=== PATIENT | female | born 1975 | race Caucasian/White ===

== ENCOUNTER 2023-10-05 15:32 | Observation (INO) | payer OTHER, SELFPAY ==
[2023-10-05 11:05] VITALS: BP 140/100
--- NOTE | 2023-10-05 11:30 | ED.GENMED ---
History of Present Illness
General
Chief Complaint: Abdominal Symptoms
Source: patient
Exam Limitations: none
Time Seen by Provider: 10/05/23 11:11
Nursing documentation reviewed up to this point in time: agreed with
Travel History
Have you had any contact with someone who has COVID-19?: No
Do you have any symptoms of coronavirus? Fever > 100 degrees, chills, cough, shortness of breath, sore throat, loss of taste or smell, muscle aches, or headache?: No
History of Present Illness
History of Present Illness:
48-year-old female with no significant past medical history states she had an upper endoscopy 4 days ago, 2 days ago developed lower abdominal cramping 'like contractions' that last for seconds but comes frequently. After the cramping she has
liquid bloody stools. She had 3 liquid bloody stools yesterday and 1 today about 2 hours ago. They do seem to be lessening in amount. She still has the abdominal cramping. No recent antibiotic use.
Past History
Past History
ED Past Medical History: None
ED Past Surgical History:
Social History
Tobacco: Non-smoker
Alcohol: None
Personal:
Living: with family
Employment: Employed
Review of Systems
Review of Systems
Allergies reviewed?: Yes
All Other Systems: ROS reviewed and negative except as documented in HPI and ROS
Constitutional: Denies fever or fatigue
Respiratory: Denies trouble breathing
Cardiac: Denies chest pain or syncope
ABD/GI: Reports abdominal pain and bloody stools; Denies nausea or vomiting
: Denies dysuria, frequency or difficulty voiding
Musculoskeletal: Reports no symptoms
Skin: Reports no symptoms
Neurological: Reports no symptoms
Phy Exam
Physical Exam
Physical Exam:
GENERAL: No acute distress. A&Ox3.
CONSTITUTIONAL: Afebrile.
EYES: Clear, conjunctivae normal
ENMT: moist mucus membranes, Pharynx nl
RESPIRATORY: Regular respirations, nonlabored, lungs clear.
CARDIOVASCULAR: Regular rate and rhythm, no murmurs, no rubs.
GI: Soft, mildy tender right lower abdomen, nondistended, normal BS
MUSCULOSKELETAL: Moves with ease. Well perfused.
SKIN: Warm, dry, pink
PSYCH: Normal mood and affect. Well kept, interactive and appropriate
NEUROLOGIC: Awake, alert and oriented. No focal neurological deficits
Course
Orders/Labs/Results
Orders:
Orders
10/05/23 11:29
CT Abd/Pel (IV only)-DH only Urgent
Comment:
Reason For Exam: lower GI bleed
IV Insert/Care/Rem.- Treatment PRN
10/05/23 12:05
Type+Screen Urgent
Complete Blood Count/With Diff Urgent
Comprehensive Metabolic Panel Urgent
PTT Urgent
Prothrombin Time Urgent
10/05/23 14:28
Add On- LAB Urgent
Tests Added?: CRP, sed rate
10/05/23 14:31
C DIFF [C difficile Antigen & Toxins] Urgent
NAHUN Source: Feces/Stool
Specimen Description:
Stool Culture Urgent
NAHUN Source: Feces/Stool
Specimen Description:
10/05/23 14:37
GASTROINTESTINAL CONSULT Urgent
Consulting Provider: Kylie Pro
Was physician already notified: Yes
Reason for consult: rectal bleeding, severe descending colon colitis
10/05/23 15:08
Admit/Transfer Patient As Directed
Co-Sign Provider:
Level of Care: Observation services
Assign to:: Medical/Surgical
Physician / Group: hospitalist-Joslyn
Diagnosis: BRBPR
10/05/23 15:09
Code Status As Directed
Resuscitation Status: Full Code
10/05/23 16:00
Piperacillin/Tazo 3.375 Gram [Zosyn] 3.375 gram in 50 ml IV Q6H
Abnormal Lab Results
10/05/23
12:05
MPV 11.4 H fL
(7.4-10.4)
Absolute Neuts (auto) 7.1 H 10^3/uL
(1.4-6.5)
Lymphocytes % 18.7 L %
(20.5-51.1)
Glucose 104 H mg/dl
(70-99)
10/05/23 12:05
10/05/23 12:05
Vital Signs
Initial and Last Documented VS:
Initial Vital Signs
Temp Pulse Resp BP Pulse Ox
98.7 F 71 16 140/100 100
10/05/23 11:05 10/05/23 11:05 10/05/23 11:05 10/05/23 11:05 10/05/23 11:05
Last Documented Vital Signs
Temp Pulse Resp BP Pulse Ox
98.7 F 61 16 134/87 99
10/05/23 11:05 10/05/23 13:00 10/05/23 13:00 10/05/23 13:00 10/05/23 13:00
Lobster Man consulted with Physician
Lobster Man consulted with physician?: Yes
Name of Physician Consulted: Sandy
MDM/Problems Addressed
Differential Diagnosis Includes:
bleeding diverticulum, colitis, diverticulitis, fissure
MDM/Problems Addressed:
48-year-old female with no significant past medical history states she had an upper endoscopy 4 days ago, 2 days ago developed lower abdominal cramping 'like contractions' that last for seconds but comes frequently. After the cramping she has
liquid bloody stools. She had 3 liquid bloody stools yesterday and 1 today about 2 hours ago. They do seem to be lessening in amount. She still has the abdominal cramping. No recent antibiotic use.
Vital signs stable, afebrile, NAD
No recent travel or known exposures.
10/05/2023 1231 PM
Passed approx 75 mL liquid bloody stool.
CBC normal
CMP normal
10/05/[address] abdomen pelvis with IV only contrast, radiology report read: IMPRESSION:
1. Severe colitis of the descending colon, likely of infectious/inflammatory etiology. No perforation or abscess.
Pt continues with liquid bloody stool.
Plan: admit: severe colitis with liquid bloody stools, IV Zosyn started, GI consult in. Pt remains stable. Stool cultures pending.
Case discussed with Dr. Delgado who agrees with plan
*Critical Care Note
Total Time (30-74mins, 75-104mins- exclusive of procedures): Not Applicable
ED Attending Note
-
Portions of this chart may have been created with voice recognition software.� Occasional wrong word or��sound alike� substitutions may have occurred due to the inherent limitations of voice recognition software.
Discharge Plan
Departure
Patient Disposition: Admit
Date of Disposition: 10/05/23
Time of Disposition: 14:35
Presentation/result/management discussed w/ accepting MD/DO: Hospitalist
Condition: Fair
Discharge Problem:
Acute hemorrhagic colitis
Interventions
Interventions:
*Risk Screen - Suicide Last Done: 10/05/23 12:03
*General Assessment Last Done: 10/05/23 11:05
*Neglect/Abuse Screening Last Done: 10/05/23 12:03
*ED COVID-19 Vaccine History Last Done: 10/05/23 11:05
[2023-10-05 12:02] VITALS: BMI 26.0
[2023-10-05 12:26] VITALS: BP 154/85
[2023-10-05 12:35] LABS: % Basophils 0.3 % (0-2); % Eosinophils 0.2 % (0-6); % Immature Granulocytes 0.2 % (0-0.5); % Lymphocytes 18.7 % (20.5-51.1); % Monocytes 5.4 % (1.7-9.3); % Neutrophils 75.2 % (42.2-75.2); Absolute Lymphocytes 1.8 10^3/uL (1.2-3.4); Absolute Monocytes 0.5 10^3/uL (0.1-0.6); Absolute Neutrophils 7.1 10^3/uL (1.4-6.5); Hematocrit 39.4 % (37.0-47.0); Hemoglobin 13.5 g/dL (12.0-16.0); Mean Corp Hgb Conc. 34.3 g/dL (33.0-37.0); Mean Corpuscular Volume 84.7 fL (81.0-99.0); Mean Platelet Volume 11.4 fL (7.4-10.4); Nucleated Red Blood Cells % 0 %; Platelet Count 208 10^3/uL (130-400); Red Blood Cell Count 4.65 10^6/uL (4.20-5.40); Red Cell Dist. Width 12.2 % (11.5-14.5); White Blood Cell Count 9.4 10^3/uL (4.8-10.8)
[2023-10-05 12:44] LABS: INR 1.05; PT 13.5 Sec (11.4-14.6)
[2023-10-05 12:45] LABS: APTT 25.5 Sec (23.4-35.0)
[2023-10-05 13:00] VITALS: BP 134/87
[2023-10-05 13:08] LABS: ALT (SGPT) 20 U/L (0-35); AST (SGOT) 22 U/L (14-36); Albumin 4.1 g/dl (3.5-5.0); Alkaline Phosphatase 103 U/L (38-126); Blood Urea Nitrogen 15 mg/dl (7-17); Calcium 10.1 mg/dl (8.4-10.2); Carbon Dioxide 29 mmol/L (22-30); Chloride 101 mmol/L (98-107); Estimated Creatinine Clearance 104 ml/min; Glucose 104 mg/dl (70-99); Potassium 3.9 mmol/L (3.5-5.1); Sodium 137 mmol/L (135-145); Total Bilirubin 0.9 mg/dl (0.2-1.3); Total Protein 6.7 g/dl (6.3-8.2); eGFR > 60.00
[2023-10-05 14:28] VITALS: BP 120/85
--- NOTE | 2023-10-05 15:11 | HPS.HSE ---
Family Physician
-
Family Physician: Blayne Rashid
Chief Complaint
-
Bright red blood per rectum
History of Present Illness
Patient is a 48-year-old female who had an EGD this past Friday prior to admission for the sensation of food getting 'stuck'. She had this done in the [place] area and was told she had no issues. 2 days ago she started developing abdominal
pain which is crampy in nature and described as 'contraction-like' in association with bright red blood per rectum. She has never had any previous issues like this. She denies fevers, chills, nausea, vomiting. Hemoglobin is stable at 13.5. Vital
signs are stable. Patient is being brought in as observation.
Medical History
Past Medical History
Past Medical History: Reports Other
Additional Past Medical History:
Hemorrhoids
Past Surgical History: Reports Other
Additional Past Surgical History:
History of
Fibroid removal
Social History
Tobacco: Former Smoker (Quit 25 years ago, used to smoke half pack per day)
Alcohol: Occasional
Drug: Other (No significant nonsteroidal use)
Family History
Family History: Other (Negative for)
Allergies / Home Medications
Allergies reflects when Allergies were last updated in [facility].
Home Medications with original date entered in [facility]
Allergy/Medication List:
Allergies
Allergy/AdvReac Type Severity Reaction Status Date / Time
No Known Allergies Allergy Verified 10/05/23 11:09
Home Medications
No Meds [No Current Medications] 10/05/23
Review of Systems
-
History Source: Patient
A 12 point ROS was completed and negative except as noted: Yes
Constitutional: Denies Fever or Chills
EENT: Reports No Symptoms
Respiratory: Reports No Symptoms
Cardiac: Reports Other (Burning on the right side of her chest that is associated with the bleeding but does not feel like reflux according to the patient)
Abdomen/GI: Reports Abdominal Pain (Crampy) and Bloody Stools; Denies Nausea, Vomiting, Diarrhea or Constipated
: Reports No Symptoms
Musculoskeletal: Reports No Symptoms
Skin: Reports No Symptoms
Neurological: Reports No Symptoms
Endocrine: Reports No Symptoms
Hematologic/Lymphatic: Reports No Symptoms
Physical Exam
Vital Signs
Vital Signs
Temp Pulse Resp BP Pulse Ox
98.7 F 61 16 134/87 99
10/05/23 11:05 10/05/23 13:00 10/05/23 13:00 10/05/23 13:00 10/05/23 13:00
Physical Exam
General: Well Developed, Well Nourished and No Apparent Distress
HEENT: NormoCephalic and Atraumatic; No Oxygen
Respiratory: Clear; No Wheezes, Rales, Rhonchi or Crackles
Cardiac: S1/S2 and Regular Rhythm; No Tachycardia or Murmur
GI: Soft, Non Tender, Non Distended and Normal Bowel Sounds
Musculoskeletal: No Clubbing, No Cyanosis and No Edema
Skin: Warm
Neuro: Awake and Alert
Psych: Calm
Laboratory Results
-
10/05/23 12:05
10/05/23 12:05
Laboratory Results
PT 13.5 Sec (11.4-14.6) 10/05/23 12:05
INR 1.05 10/05/23 12:05
APTT 25.5 Sec (23.4-35.0) 10/05/23 12:05
Total Bilirubin 0.9 mg/dl (0.2-1.3) 10/05/23 12:05
AST 22 U/L (14-36) 10/05/23 12:05
ALT 20 U/L (0-35) 10/05/23 12:05
Alkaline Phosphatase 103 U/L (38-126) 10/05/23 12:05
Impression/Plan
-
Patient is a 48-year-old female
Bright red blood per rectum --CAT scan done in the emergency department shows severe colitis of the descending colon likely infectious/inflammatory--patient has no white blood cell count elevation, no fevers--denies being ill or sick prior to
this--OBS --consult GI--will cover with antibiotics for now--clear liquids no reds--check stool studies--patient also states she has had 2 colonoscopies previous with the [facility] unclear what the timeline was
CODE STATUS--full code
DVT prophylaxis
[2023-10-05] MEDS: ZOSYN 50 IV ×2 (15:39→23:03)
[2023-10-05 16:24] VITALS: BMI 25.2
[2023-10-05 16:25] VITALS: BP 131/95
[2023-10-05] MEDS: PROTONIX IV 40 MG IV (16:52)
[2023-10-05] MEDS: NSS (PRESERVATIVE FREE) 10 ML IV (16:52)
--- NOTE | 2023-10-05 18:00 | PTCARENOTE ---
admitted from ED for colitis. AAOx3, VSS. having frequent loose bloody stools, specimen sent for culture. placed on contact precautions for Cdiff pending results. patient c/o of intermittent abdominal pain and cramping, PRN Morphine IV ordered. on
clear liquid diet, no nausea, vomiting. IV protonix administered. admission assessment as documented.
[2023-10-05 23:10] VITALS: BP 133/89
[2023-10-06] MEDS: ZOSYN 50 IV ×2 (05:05→11:25)
[2023-10-06] MEDS: TYLENOL 650 MG PO (05:33)
[2023-10-06 06:36] LABS: Hematocrit 39.3 % (37.0-47.0); Hemoglobin 13.5 g/dL (12.0-16.0); Mean Corp Hgb Conc. 34.4 g/dL (33.0-37.0); Mean Corpuscular Hgb 28.4 pg (27.0-31.0); Mean Corpuscular Volume 82.6 fL (81.0-99.0); Mean Platelet Volume 11.3 fL (7.4-10.4); Platelet Count 221 10^3/uL (130-400); Red Blood Cell Count 4.76 10^6/uL (4.20-5.40); Red Cell Dist. Width 12.1 % (11.5-14.5); White Blood Cell Count 10.7 10^3/uL (4.8-10.8)
[2023-10-06 06:54] LABS: Blood Urea Nitrogen 14 mg/dl (7-17); Carbon Dioxide 26 mmol/L (22-30); Chloride 102 mmol/L (98-107); Estimated Creatinine Clearance 91 ml/min; Glucose 96 mg/dl (70-99); Magnesium 1.9 mg/dl (1.6-2.3); Potassium 4.1 mmol/L (3.5-5.1); Sodium 136 mmol/L (135-145); eGFR > 60.00
[2023-10-06 07:00] VITALS: BP 128/81
[2023-10-06] MEDS: PROTONIX IV 40 MG IV (07:59)
[2023-10-06] MEDS: NSS (PRESERVATIVE FREE) 10 ML IV (08:00)
--- NOTE | 2023-10-06 08:30 | PTOTSP ---
Speech Language Pathology
Pt seen for clinical bedside swallow evaluation. Pt reported globus sensation, specifically of nuts, localized to level of sternal notch for approximately 2 months. She stated this resolved 2 weeks ago, prior to EGD completion. EGD with no
findings per her report. She reported she has had nuts in the last 2 weeks with no difficulties.
This date, P.O. trials of regular solids (1 small bite for evaluation purposes) and thin liquids provided. Adequate mastication, bolus formation, and A-P transit noted. No overt signs of aspiration.
Recommend:
(1) Regular solids/thin liquids once cleared by GI
(2) General aspiration precautions
(3) Meds as tolerated
(4) EMS DIRECTOR to sign off. Please reconsult as indicated.
--- NOTE | 2023-10-06 08:32 | CON.GI ---
Addendum entered and electronically signed by Kylie Pro MD 10/06/23 11:55:
I saw and examined the patient.
The FEDERAL JAVA DEVELOPER's note was reviewed and I agree with the note.
Comment: This is a 48-year-old female who presented to the emergency room last night with symptoms of diarrhea with rectal bleeding. She did have lower abdominal discomfort associated with it. She says that she had a recent endoscopy with her GI
in [place] (she could not remember the name) for dysphagia symptoms and she says that it was unremarkable she is waiting on biopsy results from her esophagus. She currently has no symptoms of reflux. she had eggs and sausage yesterday for
breakfast at a restaurant. She is feeling much improved today she did receive antibiotics in the emergency room with Zosyn and CT showed severe colitis of the descending colon, her WBC count is normal, and hemoglobin is normal, stool was negative
for C. difficile, cultures are pending.
Assessment and plan acute onset of abdominal pain with bloody diarrhea and CT with left-sided colitis consistent with infectious colitis. Given that she is nontoxic-appearing and unremarkable labs would discontinue antibiotics. symptoms markedly
improved within 24 hours she did receive 2 doses of Zosyn since admission. Will advance diet to low residue diet. She did have a recent colonoscopy in 2022 and had colon polyps doubt inflammatory bowel disease. if she tolerates diet and no
further bleeding she is okay to DC home for outpatient follow-up with her GI
Original Note:
Consultation
-
Date/Time Consultation Requested: 10/05/23 @ 14:37
Date/Time Consultation Performed: 10/06/23 @ 09:00
Requesting Provider: Dr. Jorgensen
Performing Provider: SOFÍA Pena; Dr. Pro
Reason for Consultation: rectal bleeding, severe descending colon colitis
Medical History
Chief Complaint / HPI
Chief Complaint: BRBPR
History of Present Illness:
The pt is a 48 yo female with a PMH significant for hemorrhoids, dysphagia, who presented to the ER with complaints of bright red blood per rectum. We are being asked to evaluate for colitis. The pt reports developing crampy abdominal discomfort to
the left lower abdomen over the weekend with associated bright red blood per rectum. She notes that she had 4 episodes of bleeding prior to admission. She denies similar episodes in the past. Leading up to this she had been experiencing some
problems with constipation over the last 2 months, which is uncommon for her. She denies any significant diarrhea prior to this episode. She denies any nausea or vomiting, but has had recent workup for dysphagia undergoing an endoscopy in [place]
which was reportedly normal. She denies any fevers, chills, chest pain, shortness of breath, unintentional weight loss, loss of appetite, syncope, or dizziness. She denies any anemia or history of GI bleed. She otherwise denies any recent
hospitalizations, recent changes in medications, recent antibiotics, sick contacts, or recent travel. She does admit to prior history of colonoscopy in which she had polyps removed, sometime last year. She denies any use of blood thinners or
significant use of NSAIDs. No significant family history of colon cancer or other GI disorders. She denies any personal history of IBD or colitis. In the ER, CT of the abdomen pelvis was done with IV contrast showing severe colitis of the
descending colon without perforation or abscess. Labs essentially unrevealing. Stool studies sent negative for C. difficile, with stool culture pending. She was started on IV Zosyn, clear liquid diet, and admitted for further evaluation by GI.
She reports no further bleeding since last night.
Past Medical History
Past Medical History: Other (hemorrhoids, dysphagia (w/up unrevealing per pt))
Past Surgical History: and Gynecological (fibroid tumor removed)
Social History
Tobacco: Non-Smoker
Alcohol: None
Drug: None
Personal:
Living: With Family
Family History
Family History: Reviewed & Not Pertinent
Allergies / Home Medications
Allergy/AdvReac Type Severity Reaction Status Date / Time
No Known Allergies Allergy Verified 10/05/23 11:09
Medication Instructions Recorded
No Meds [No Current Medications] 10/05/23
Review of Systems
-
History Source: Patient
Constitutional: Reports No Symptoms
EENT: Reports No Symptoms
Respiratory: Reports No Symptoms
Cardiac: Reports No Symptoms
Abdomen/GI: Reports Abdominal Pain, Diarrhea and Bloody Stools
: Reports No Symptoms
Musculoskeletal: Reports No Symptoms
Skin: Reports No Symptoms
Neurological: Reports No Symptoms
Vital Signs
Temp Pulse Resp BP Pulse Ox
98.3 F 63 18 133/89 97
10/05/23 23:10 10/05/23 23:10 10/05/23 23:10 10/05/23 23:10 10/05/23 23:10
Physical Exam
Exam
General: Well Developed, Well Nourished and No Apparent Distress
HEENT: Normocephalic and Atraumatic
Respiratory: Clear
Cardiac: S1/S2 and Regular Rhythm
Breast: Deferred by me
GI: Soft, Non Distended, Normal Bowel Sounds (hyperactive) and Tender (LLQ)
Rectal: Deferred by Provider
Musculoskeletal: No Edema
Skin: Warm and Dry
Neuro: Awake, Alert and Oriented
Psych: Calm
Results
WBC 10.7 10^3/uL (4.8-10.8) 10/06/23 06:00
Hgb 13.5 g/dL (12.0-16.0) 10/06/23 06:00
Hct 39.3 % (37.0-47.0) 10/06/23 06:00
MCV 82.6 fL (81.0-99.0) 10/06/23 06:00
Plt Count 221 10^3/uL (130-400) 10/06/23 06:00
Absolute Neuts (auto) 7.1 10^3/uL (1.4-6.5) H 10/05/23 12:05
PT 13.5 Sec (11.4-14.6) 10/05/23 12:05
INR 1.05 10/05/23 12:05
APTT 25.5 Sec (23.4-35.0) 10/05/23 12:05
Sodium 136 mmol/L (135-145) 10/06/23 06:00
Potassium 4.1 mmol/L (3.5-5.1) 10/06/23 06:00
Chloride 102 mmol/L (98-107) 10/06/23 06:00
Carbon Dioxide 26 mmol/L (22-30) 10/06/23 06:00
BUN 14 mg/dl (7-17) 10/06/23 06:00
Creatinine 0.8 mg/dL (0.6-1.0) 10/06/23 06:00
Calcium 10.0 mg/dl (8.4-10.2) 10/06/23 06:00
Total Bilirubin 0.9 mg/dl (0.2-1.3) 10/05/23 12:05
AST 22 U/L (14-36) 10/05/23 12:05
ALT 20 U/L (0-35) 10/05/23 12:05
Alkaline Phosphatase 103 U/L (38-126) 10/05/23 12:05
Diagnostic Image Results:
10/05/23 CT A/P w/IV contrast only: 'Severe colitis of the descending colon, likely of infectious/inflammatory etiology. No perforation or abscess.'
Prior GI Procedures:
EGD: last month in [place] for dysphagia, normal per pt. (report not available to me)
Colonoscopy: last 2022 per pt with polyps (report not available to me)
Assessment / Plan
-
The pt is a 48 yo female with a PMH significant for hemorrhoids, dysphagia with recent EGD which was unrevealing (per pt), who presented to the ER with complaints of bright red blood per rectum. We are being asked to evaluate for colitis. She notes
acute onset of crampy abdominal pain over the weekend with associated rectal bleeding. No identifiable triggers. Cdiff negative, further stools pending. CT imaging showing severe descending colitis. No prior episodes of colitis in the past. No
recent abx or recent travel. She notes she has had 2 colonoscopies for routine screenings with polyps.
Problem list:
-abdominal pain 2/2 severe descending colitis seen on CT scan
-BRBPR
-dysphagia (EGD unrevealing last month per pt)
-hx colon polyps
Recommendations:
-Etiology of colitis likely infectious v inflammatory v less likely ischemic v other.
---Prior colonoscopies with polyps, last 2022 per pt with no hx IBD. Cdiff negative. CT as above.
-For now continue with conservative management.
-Stool studies pending, will follow. Cdiff negative (added giardia/crypto, norovirus, and stool WBC)
-Continue IV antibiotics for now with severity of colitis on CT and improvement in symptoms, will review with Dr. Pro
-Monitor stool output (no blood since 10/05 evening)
-CLD this am, if tolerating advance to low residue diet. Provided a handout on low residue diet.
-She would like to be discharged and I advised her we need to make sure she is tolerating her diet and has no further bleeding.
-I did also review with her she will need eventual colonoscopy 6-8 weeks post colitis episode for further evaluation which she can do with her GI in [place].
-Will follow
Data Reviewed
-
CT Scan: Report Reviewed by me
-
-
Thank you for consultation and allowing me to participate in the patient's care. Please call the senior medical transcriptionist GI physician during the after hours with any questions or concerns.
--- NOTE | 2023-10-06 12:39 | W.PN.HOSP.TC ---
Addendum entered and electronically signed by Waldo Polanco MD 10/06/23 12:48:
With uncomplicated colitis, nontoxic-appearing on unremarkable labs and rapid improvement in her colitis symptoms GI recommends to hold further antibiotics.
Original Note:
Today's Communication/Plan
-
dc
Assessment / Plan
Assessment / Plan
Patient is a 48-year-old female
Bright red blood per rectum --CAT scan done in the emergency department shows severe colitis of the descending colon likely infectious/inflammatory--patient has no white blood cell count elevation, no fevers--denies being ill or sick prior to this--
--patient also states she has had colonoscopies previous with the [facility] unclear what the timeline was
Her colitis is uncomplicated. Tolerating diet. No further rectal bleeding. Hemoglobin stable. Seen by GI. Diet being advanced.
He tolerates low residue diet we will discharge her home on oral Augmentin.
Patient advised to return to ER if fever, worsening abdominal pain, or further rectal bleeding. Otherwise plan is to see GI in 6 to 8 weeks time.
CODE STATUS--full code
DVT prophylaxis
Anticipated Discharge: Today
Subjective/Interval History
-
Date of Service: October 06, 2023
No nausea vomiting. Tolerating liquid diet ; diet been advanced to low residue diet by GI.
Abdominal pain much improved.
No further rectal bleeding not had any bowel movement.
Objective Data
-
Labs:
Laboratory Results
10/06/23
06:00
WBC 10.7
Hgb 13.5
Hct 39.3
Plt Count 221
Sodium 136
Potassium 4.1
Chloride 102
Carbon Dioxide 26
BUN 14
Creatinine 0.8
Glucose 96
Calcium 10.0
Vital Signs:
Vital Signs
Temp Pulse Resp BP Pulse Ox
98.2 F 63 16 128/81 100
10/06/23 07:00 10/06/23 07:00 10/06/23 07:00 10/06/23 07:00 10/06/23 07:00
I&O
10/05/23 10/06/23 10/07/23
06:59 06:59 06:59
Intake Total 530 / 530
Balance 530 / 530
Review of Systems
-
Constitutional: Denies Fever
EENT: Denies Sore Throat
Respiratory: Denies Cough or Trouble Breathing
Cardiac: Denies Chest Pain
Neuro: Denies Dizzy
Physical Exam
-
General: No Apparent Distress
HEENT: Moist Mucous Membranes
Cardiac: Regular Rhythm and S1/S2; Negative Tachycardic
GI: Soft, Nondistended and Normal Bowel Sounds; Negative Tender (slight discomfort in llq, no rebound or guarding)
Neuro: AO x 3
Data Reviewed
-
Labs: Labs Reviewed by me
--- NOTE | 2023-10-06 12:47 | W.DS.TRANS ---
DC Summary - Supervisor Maintenance
-
Discharge Instructions:
Discharge Diagnosis/Procedures Colitis -left sided
Diet Low Residue
Activity As tolerated
Driving Restrictions As prior to admission
Bathing Restrictions None
Others Tests Call the GI office in 1 week for your stool
study results. If you would like to schedule a
follow-up with us let us know at that time.
[phone]
Instructions:
Stand-Alone Forms:
Changes to Home Medications: No
Discharge Medications:
DC Medications w/original date entered in [facility]
acetaminophen 325 mg tablet 650 mg PO Q4HPRN PRN mild pain/RAM/temp>100.5 #1 tab 10/06/23
Home Medication Changes
Pending Results: No
--- NOTE | 2023-10-06 12:48 | W.DCSUMMARY ---
Discharge Summary
Discharge Data
Date of Admission: 10/05/23
Date of Discharge: 10/06/23
-
Pending Results: No
Hospital Course
Primary diagnosis:
Acute left-sided colitis
Hospital course:
48-year-old presented with a symptom of diarrhea with rectal bleeding and abdominal pain. She had egg and sausage for breakfast yesterday at a restaurant. She was nontoxic on presentation. White count was normal. CT showed uncomplicated
left-sided colitis.
Was seen by GI. She apparently had a colonoscopy in 2022 and had polyps removed.
Without toxicity and uncomplicated colitis and rapid improvement GI recommended to hold further antibiotics and follow. CT of stool test was negative. Rest of the stool cultures pending at the time of discharge.
She probably would require repeat colonoscopy in 6 to 8 weeks time. Recommended to follow with GI
Consultants on board:
GI Dr Pro
Discharge Plan
-
Patient Disposition: Home (Routine Discharge)
Discharge Diagnosis/Procedures: Colitis -left sided
Diet: Low Residue
Activity: As tolerated
Driving Restrictions: As prior to admission
Bathing Restrictions: None
Others Tests: Call the GI office in 1 week for your stool study results. If you would like to schedule a follow-up with us let us know at that time. [phone]
Referrals:
Kylie Pro MD [Active] - in one to two months
Blayne aRshid DO [Family Provider] - in less than 1 week
Prescriptions:
New
acetaminophen 325 mg Tablet
650 mg PO Q4HPRN PRN (Reason: mild pain/RAM/temp>100.5) Qty: 1 0RF
Discharge Orders:
Discharge Patient (As Directed); Ordered 10/06/23
Ordered By: Waldo Polanco
--- NOTE | 2023-10-06 14:53 | CM ---
Patient seen at bedside. Patient for discharge today and states that she will review OBS form. Patient did not sign form. Patient going home with family, no needs. CM will continue to follow for discharge planning needs.
Plan; home with no needs.
== END 2023-10-06 14:08 | disposition home or self-care (01) ==
LOC: 3 WEST ACU 15:32
PROVIDERS: Registered Nurse; ADMITTING PHYSICIAN Internal Medicine; ATTENDING PHYSICIAN Internal Medicine; CONSULT PHYSICIAN Internal Medicine Gastroenterology; EMERGENCY PHYSICIAN Emergency Medicine; FAMILY PHYSICIAN Family Medicine
DX: K51.511 Left sided colitis with rectal bleeding (principal); R10.9 Unspecified abdominal pain; R09.A2 Foreign body sensation, throat; Z87.891 Personal history of nicotine dependence; Z87.19 Personal history of other diseases of the digestive system
CPT/HCPCS: 74177; 80048; 80053; 83735; 85025; 85027; 85610; 85730; 86850; 86900; 86901; 87045; 87046; 87324; 87427; 87449; 92610; 99285; G0378; Q9967